=== PATIENT | female | born 1990 | race Caucasian/White ===

== ENCOUNTER 2021-03-30 20:31 | Emergency (ER) | payer OTHER ==
[~2021-03-30] VITALS: Ht 165.1 cm; Wt 73.0 kg
[2021-03-30] MEDS ORDERED: VENTOLIN HFA108 MCG (20:51)
[2021-03-30] MEDS ORDERED: BENADRYL 25MG C25 MG PO (20:52)
[2021-03-30 21:01] VITALS: BP 120/77
== END 2021-03-30 21:12 | DRG 923 ==
LOC: ED 20:31
DX: Z04.1 Encounter for examination and observation following transport accident (principal)

== ENCOUNTER 2021-08-11 07:25 | Emergency (ER) | payer OTHER ==
[~2021-08-11] VITALS: Ht 165.1 cm; Wt 73.0 kg
[~2021-08-11 07:25] MED LIST: BENADRYL 25MG C25 MG PO; VENTOLIN HFA108 MCG
[2021-08-11] MEDS ORDERED: PROAIR HFA108 MCG/AC PO (09:23)
[2021-08-11] MEDS ORDERED: TAM75CAP PO (09:23)
[2021-08-11] MEDS ORDERED: ONDANSETRON4 MG PO (09:23)
[2021-08-11] MEDS ORDERED: PROVENTIL0.083 % IN (09:23)
[2021-08-11] MEDS ORDERED: PREDNISONE50 MG PO (09:25)
[2021-08-11 09:48] VITALS: BP 132/74
== END 2021-08-11 10:00 | disposition home or self-care (01) ==
LOC: ED 07:25
DX: J11.1 Influenza due to unidentified influenza virus with other respiratory manifestations (principal); J45.909 Unspecified asthma, uncomplicated; F41.9 Anxiety disorder, unspecified; F32.A Depression, unspecified; Z20.822 Contact with and (suspected) exposure to COVID-19